=== PATIENT | female | born 1970 | race Caucasian/White ===

== ENCOUNTER 2022-10-14 12:10 | Day surgery (SDC) | payer OTHER ==
[~2022-10-14] VITALS: Ht 167.6 cm; Wt 59.0 kg
== END 2022-10-14 19:15 | disposition home or self-care (01) ==
LOC: CIR.AMB 12:10
PROVIDERS: ATTEND Student in an Organized Health Care Education/Training Program
DX: N84.0 Polyp of corpus uteri (principal); N95.0 Postmenopausal bleeding; Z20.822 Contact with and (suspected) exposure to COVID-19